=== PATIENT | female | born 1965 | race Caucasian/White ===

== ENCOUNTER 2017-01-17 19:51 | Observation (INO) | payer BC ==
[2017-01-17] MEDS ORDERED: ASPIRIN 81 MG TABLET, CHEWABLE PO ONE (20:25)
--- NOTE | 2017-01-17 20:27 | ER Document Report ---
ED Medical Screen (RME) - General Chief Complaint: Chest Pain Stated Complaint: CHEST PAIN Time Seen by Provider: 01/17/17 20:25 Notes: Patient says that she was watching Judge May on TV when she began experiencing chest pains across the front of the chest and between her shoulder blades and the back. She felt "tightness" in her jaw. She has a history of 2 prior heart attacks with similar symptoms. She had nitroglycerin and took 3 of them but did not get any relief, although the chest pain is beginning to ease off some now. Some mild shortness of breath. No recent illness. PMH: Heart attack 2. Hypertension. Patient of Dr. Nelson. TRAVEL OUTSIDE OF THE [place] IN LAST 30 DAYS: No - Related Data Allergies/Adverse Reactions: No Known Allergies Allergy (Verified 01/10/12 03:19) Past Medical History - Social History Frequency of alcohol use: None Drug Abuse: None - Past Medical History Cardiac Medical History: Reports: Hx Heart Attack - x2, last in january, Hx Hypercholesterolemia, Hx Hypertension Pulmonary Medical History: Reports: Hx Asthma, Hx COPD Renal/ Medical History: Denies: Hx Peritoneal Dialysis Psychiatric Medical History: Reports: Hx Depression Infectious Medical History: Denies: Hx MRSA Past Surgical History: Reports: Hx Hysterectomy - Immunizations Immunizations up to date: Yes Hx Diphtheria, Pertussis, Tetanus Vaccination: Yes Physical Exam - Vital signs Vitals: Temp Pulse Resp BP Pulse Ox 98.8 F 75 18 168/103 H 97 01/17/17 20:05 01/17/17 20:05 01/17/17 20:05 01/17/17 20:05 01/17/17 20:05 Course - Vital Signs Vital signs: Temp Pulse Resp BP Pulse Ox 98.8 F 75 18 168/103 H 97 01/17/17 20:05 01/17/17 20:05 01/17/17 20:05 01/17/17 20:05 01/17/17 20:05
[2017-01-17 20:53] LABS: ABSOLUTE BASOPHILS # (AUTO) 0.1 10^3/uL (0.0-0.2); ABSOLUTE EOSINOPHILS # (AUTO) 0.1 10^3/uL (0.0-0.6); ABSOLUTE LYMPHOCYTES (AUTO) 2.5 10^3/uL (0.5-4.7); ABSOLUTE MONOCYTES (AUTO) 0.5 10^3/uL (0.1-1.4); EOSINOPHILS % (AUTO) 1.3 % (0-6); HEMATOCRIT 41.2 % (36.0-47.0); HEMOGLOBIN 13.7 g/dL (12.0-15.5); HGB HCT DIFFERENCE -0.1; LYMPHOCYTES % (AUTO) 30.6 % (13-45); MEAN CORPUSCULAR HEMOGLOBIN 28.8 pg (27.0-33.4); MEAN CORPUSCULAR HGB CONC 33.3 g/dL (32.0-36.0); MEAN CORPUSCULAR VOLUME 87 fl (80-97); MONOCYTES % (AUTO) 5.9 % (3-13); RED BLOOD COUNT 4.76 10^6/uL (3.72-5.28); RED CELL DISTRIBUTION WIDTH 14.5 % (11.5-14.0); SEGMENTED NEUTROPHILS % (AUTO) 61.2 % (42-78); WHITE BLOOD COUNT 8.2 10^3/uL (4.0-10.5)
--- NOTE | 2017-01-17 21:01 | RADIOLOGY REPORT (SQ) ---
EXAM DESCRIPTION: CHEST SINGLE VIEW COMPLETED DATE/TIME: 01/17/2017 8:47 pm REASON FOR STUDY: Chest pain COMPARISON: June 2011 EXAM PARAMETERS: NUMBER OF VIEWS: One view. TECHNIQUE: Single frontal radiographic view of the chest acquired. RADIATION DOSE: NA LIMITATIONS: None. FINDINGS: LUNGS AND PLEURA: No opacities, masses or pneumothorax. No pleural effusion. Mild chronic appearing interstitial changes are identified. MEDIASTINUM AND HILAR STRUCTURES: No masses. Contour normal. HEART AND VASCULAR STRUCTURES: Heart normal in size. Normal vasculature. BONES: No acute findings. HARDWARE: None in the chest. OTHER: No other significant finding. IMPRESSION: NO ACUTE RADIOGRAPHIC FINDING IN THE CHEST. TECHNICAL DOCUMENTATION: JOB ID: [id number]
[2017-01-17] MEDS ORDERED: NITROGLYCERIN 2% OINTMENT 1 GM PACKET TP ONE (21:11)
[2017-01-17 21:12] LABS: ALANINE AMINOTRANSFERASE 24 U/L (9-52); ALKALINE PHOSPHATASE 99 U/L (38-126); ANION GAP 11 (5-19); ASPARTATE AMINO TRANSFERASE 18 U/L (14-36); BILIRUBIN,DIRECT 0.3 mg/dL (0.0-0.4); BILIRUBIN,TOTAL 0.5 mg/dL (0.2-1.3); BLOOD UREA NITROGEN 20 mg/dL (7-20); CALCIUM 9.3 mg/dL (8.4-10.2); CARBON DIOXIDE 25 mmol/L (22-30); CHLORIDE 104 mmol/L (98-107); CREATINE KINASE 83 U/L (30-135); CREATININE RESULT 0.99 mg/dL (0.52-1.25); GLUCOSE 111 mg/dL (75-110); POTASSIUM 4.2 mmol/L (3.6-5.0); TOTAL PROTEIN 6.8 g/dL (6.3-8.2)
--- NOTE | 2017-01-17 21:16 | ER Document Report ---
ED Cardiac - General Chief Complaint: Chest Pain Stated Complaint: CHEST PAIN Time Seen by Provider: 01/17/17 20:25 Mode of Arrival: Ambulatory Information source: Patient Notes: 52-year-old female with a history of coronary artery disease (ME 2, stents 2) who presents to the emergency room chest tightness radiating to the jaw and shoulder blades. The patient states she took 3 nitroglycerin. Patient states that the pain started at approximately 630 to 6:45 PM and lasted to approximately 8:15 PM. She states that the pain gradually resolved. Her blood pressure initially was noted to be elevated at 168/103 TRAVEL OUTSIDE OF THE [place] IN LAST 30 DAYS: No - HPI Patient complains to provider of: Chest tightness Use of: denies: Alcohol, Amphetamines, Bath salts, Caffeine, Cocaine, Decongestants, Other Was the onset of pain: Gradual Is the pain a: New problem Chest pain location: Substernal Quality of pain: Heaviness, Tightness. denies: Moderate, Sharp Chest pain radiation location: Left jaw, Right jaw Severity now: None Severity at worst: Moderate Pain level currently: Denies Chest pain precipitating factors: At Rest Cardiac risk factors: Hx ME Positive cardiac history: Yes Associated symptoms: denies: Abdominal pain, Shortness of breath Exacerbated by: Denies Relieved by: NTG Similar symptoms previously: Yes Recently seen / treated by doctor: No - Related Data Allergies/Adverse Reactions: No Known Allergies Allergy (Verified 01/10/12 03:19) Past Medical History - General Information source: Patient - Social History Smoking Status: Former Smoker Cigarette use (# per day): No - Quit 2 years ago Chew tobacco use (# tins/day): No Smoking Education Provided: No Frequency of alcohol use: None Drug Abuse: None Lives with: Family Family History: Reviewed & Not Pertinent Patient has suicidal ideation: No Patient has homicidal ideation: No - Past Medical History Cardiac Medical History: Reports: Hx Heart Attack - x2, last in january, Hx Hypercholesterolemia, Hx Hypertension Pulmonary Medical History: Reports: Hx Asthma, Hx COPD Renal/ Medical History: Denies: Hx Peritoneal Dialysis Psychiatric Medical History: Reports: Hx Depression Infectious Medical History: Denies: Hx MRSA Past Surgical History: Reports: Hx Hysterectomy - Immunizations Immunizations up to date: Yes Hx Diphtheria, Pertussis, Tetanus Vaccination: Yes Review of Systems - Review of Systems Constitutional: denies: Chills, Fever EENT: No symptoms reported Cardiovascular: See HPI Respiratory: No symptoms reported Gastrointestinal: No symptoms reported Genitourinary: No symptoms reported Female Genitourinary: No symptoms reported Musculoskeletal: No symptoms reported Skin: No symptoms reported Hematologic/Lymphatic: No symptoms reported Neurological/Psychological: No symptoms reported Physical Exam - Vital signs Vitals: Temp Pulse Resp BP Pulse Ox 98.8 F 75 18 168/103 H 97 01/17/17 20:05 01/17/17 20:05 01/17/17 20:05 01/17/17 20:05 01/17/17 20:05 Notes: Physical exam: GENERAL: A 2-year-old female, alert and oriented 3, no acute distress. Patient denies pain at this time. Currently, her blood pressure is 146/86 with a pulse of 62 her respiratory rate is 18 and her oxygen saturation is 96% on room air. HEAD: Atraumatic, normocephalic. EYES: Pupils equal round and reactive to light, extraocular movements intact, sclera anicteric, conjunctiva are normal. ENT: TMs normal, nares patent, oropharynx clear without exudates. Moist mucous membranes. NECK: Normal range of motion, supple without lymphadenopathy or JVD. LUNGS: Breath sounds clear to auscultation bilaterally and equal. No wheezes rales or rhonchi. HEART: Regular rate and rhythm without murmurs, rubs or gallops. ABDOMEN: Soft, normoactive bowel sounds. No tenderness to palpation. No guarding, no rebound. No masses appreciated. EXTREMITIES: Normal range of motion, no pitting or edema. No clubbing or cyanosis. NEUROLOGICAL: Cranial nerves II through XII grossly intact. Normal speech, normal gait. PSYCH: Normal mood, normal affect. SKIN: Warm, Dry, normal turgor, no rashes or lesions noted. Course - Vital Signs Vital signs: Temp Pulse Resp BP Pulse Ox 98.8 F 75 18 168/103 H 97 01/17/17 20:05 01/17/17 20:05 01/17/17 20:05 01/17/17 20:05 01/17/17 20:05 - Laboratory Result Diagrams: 01/17/17 20:35 01/17/17 20:35 Laboratory results interpreted by me: 01/17/17 01/17/17 20:35 20:35 RDW 14.5 H Est GFR (Non-Af Amer) 59 L Glucose 111 H - Diagnostic Test Radiology reviewed: Image reviewed, Reports reviewed - X-ray shows no obvious infiltrates - EKG Interpretation by Me Rate: Normal Rhythm: NSR - EKG shows normal sinus rhythm with a ventricular rate of 73, anterior septal Q's, no acute ST-T wave changes Discharge - Discharge Clinical Impression: Chest Pain Condition: Stable Disposition: ADMITTED OBSERVATION Admitting Provider: [facility] [place] [facility] Admitted: Telemetry
[2017-01-17 21:23] LABS: CREATINE KINASE MB 1.04 ng/mL (<4.55)
[2017-01-17 21:25] LABS: TROPONIN I < 0.012 ng/mL
[2017-01-17] MEDS ORDERED: NITROGLYCERIN 0.4 MG/TAB 25 TAB/BOTTLE SL PRN (23:36)
[2017-01-17] MEDS ORDERED: MORPHINE SULFATE 10 MG/ML INJ IV PRN (23:38)
[2017-01-17] MEDS ORDERED: ONDANSETRON HCL INJ/PF 4 MG/2 ML SDV IV PRN (23:49)
[2017-01-17] MEDS ORDERED: OXYCODONE-ACETAMINOPHEN 5-325 MG TABLET PO PRN (23:49)
[2017-01-17] MEDS ORDERED: LORAZEPAM 1 MG TABLET PO PRN (23:49)
[2017-01-17] MEDS ORDERED: DOCUSATE SODIUM 100 MG CAPSULE PO PRN (23:49)
[2017-01-17] MEDS ORDERED: PROMETHAZINE HCL 25 MG TABLET PO PRN (23:49)
[2017-01-18 01:00] LABS: CREATINE KINASE MB 2.05 ng/mL (<4.55)
[2017-01-18 01:09] LABS: TROPONIN I 0.301 ng/mL
--- NOTE | 2017-01-18 03:57 | EKG REPORT ---
SEVERITY:- ABNORMAL ECG - SINUS RHYTHM BORDERLINE LEFT AXIS DEVIATION ANTERIOR INFARCT, OLD : Confirmed by: Tiffanie Osorio MD 18-Jan-2017 03:56:11
--- NOTE | 2017-01-18 03:57 | EKG REPORT ---
SEVERITY:- BORDERLINE ECG - SINUS RHYTHM BORDERLINE LEFT AXIS DEVIATION CONSIDER ANTERIOR INFARCT : Confirmed by: Tiffanie Osorio MD 18-Jan-2017 03:56:06
[2017-01-18] MEDS ORDERED: LANSOPRAZOLE 30 MG TAB.RAP.DR PO SCH (06:00)
[2017-01-18 06:10] LABS: HEMATOCRIT 41.5 % (36.0-47.0); HEMOGLOBIN 13.7 g/dL (12.0-15.5); HGB HCT DIFFERENCE -0.4; MEAN CORPUSCULAR HEMOGLOBIN 28.9 pg (27.0-33.4); MEAN CORPUSCULAR HGB CONC 32.9 g/dL (32.0-36.0); MEAN CORPUSCULAR VOLUME 88 fl (80-97); RED BLOOD COUNT 4.73 10^6/uL (3.72-5.28); RED CELL DISTRIBUTION WIDTH 14.5 % (11.5-14.0); WHITE BLOOD COUNT 5.9 10^3/uL (4.0-10.5)
[2017-01-18 06:40] LABS: CREATINE KINASE MB 3.82 ng/mL (<4.55)
[2017-01-18 06:53] LABS: TROPONIN I 0.716 ng/mL
[2017-01-18] MEDS: ALBUTEROL SULFATE HFA (90 MCG/PUFF) 8 GM MDI (1 MDI/ER DISP) IH SCH ×2 (08:34→09:57)
[2017-01-18] MEDS: ACETAMINOPHEN 325 MG TABLET PO PRN ×2 (08:34→11:36)
--- NOTE | 2017-01-18 09:15 | PDOC H&P ---
History of Present Illness Admission Date/PCP: 01/18/17 00:28 YSABEL CHRISSYRILEY Patient complains of: Chest pain/tightness radiating to shoulders and jaw, lasted for about 2 hours. History of Present Illness: FARIDA CHACKO is a 52 year old female with hx of HTN/Hyperlipidemia/CAD s.p [place]/ stentsx2/Asthma/Migraine headache/Back pain/osteoarthritis/Anxiety disorder, who started having chest pain- more of tightness while watching a program on TV ; the pain radiates to shoulders and jaw assoc. with dyspnea. She took 3 NTG with some relief, but the pain persisted, hence she came to ER for evaluation and mgt. Past Medical History Cardiac Medical History: Reports: Myocardial Infarction - x2, last in january, Hyperlipidema, Hypertension Pulmonary Medical History: Reports: Asthma, Chronic Obstructive Pulmonary Disease (COPD) Psychiatric Medical History: Reports: Depression Infectious Medical History: Denies: Methicillin-Resistant Staph Aureus Past Surgical History Past Surgical History: Reports: Hysterectomy Social History Lives with: Family Smoking Status: Former Smoker Drugs: None Family History Family History: Reviewed & Not Pertinent Parental Family History Reviewed: Yes Children Family History Reviewed: Yes Sibling(s) Family History Reviewed.: Yes Medication/Allergy Allergies/Adverse Reactions: No Known Allergies Allergy (Verified 01/10/12 03:19) Review of Systems Constitutional: PRESENT: as per HPI Eyes: PRESENT: as per HPI Ears: PRESENT: as per HPI Nose, Mouth, and Throat: PRESENT: as per HPI Cardiovascular: PRESENT: chest pain, dyspnea on exertion Respiratory: PRESENT: dyspnea Gastrointestinal: PRESENT: as per HPI Genitourinary: PRESENT: as per HPI Musculoskeletal: PRESENT: as per HPI Integumentary: PRESENT: as per HPI Neurological: PRESENT: as per HPI Psychiatric: PRESENT: as per HPI Physical Exam Vital Signs: Temp Pulse Resp BP Pulse Ox 97.7 F 61 18 132/84 H 96 01/18/17 07:13 01/18/17 07:13 01/18/17 07:13 01/18/17 07:13 01/18/17 07:13 General appearance: PRESENT: no acute distress, cooperative, well-developed, well-nourished Head exam: PRESENT: atraumatic, normocephalic Eye exam: PRESENT: EOMI, PERRLA Ear exam: PRESENT: normal external ear exam Mouth exam: PRESENT: neck supple, tongue midline Neck exam: PRESENT: full ROM Respiratory exam: PRESENT: clear to auscultation kamari, symmetrical Cardiovascular exam: PRESENT: +S1, +S2 Pulses: PRESENT: +2 pedal pulses bilateral GI/Abdominal exam: PRESENT: normal bowel sounds, soft Rectal exam: PRESENT: deferred Neurological exam: PRESENT: alert, awake, oriented to person, oriented to place , oriented to time, CN II-XII grossly intact Psychiatric exam: PRESENT: normal mood Results Laboratory Results: 01/18/17 05:55 01/18/17 05:55 WBC 5.9 RBC 4.73 Hgb 13.7 Hct 41.5 MCV 88 MCH 28.9 MCHC 32.9 RDW 14.5 H Plt Count 198 01/18/17 01/18/17 05:55 05:55 Creatine Kinase 89 CK-MB (CK-2) 3.82 Troponin I 0.716 Impressions: Chest X-Ray 01/17/17 20:25 IMPRESSION: NO ACUTE RADIOGRAPHIC FINDING IN THE CHEST. Assessment & Plan - Diagnosis (1) Chest pain at rest Is this a current diagnosis for this admission?: YesPlan: Ct with NTG 0.4mg S/L q5 min prn x3; Morphine 2 mg q4h IV prn; Zofran 4mg q6h prn IV; Aspirin 81 mg qd po; 2 g diet, low cholesterol diet; serial EKG and cardiac enzymes. F/u cardiology consult. (2) Hypertension Qualifiers: Hypertension type: essential hypertension Qualified Code(s): I10 - Essential (primary) hypertension Is this a current diagnosis for this admission?: YesPlan: Ct with Lisinopril 20 mg qd po; Metoprolol tartrate 25 mg BID po; 2 g sodium diet. (3) Hyperlipidemia Is this a current diagnosis for this admission?: YesPlan: Ct with Atorvastatin 40 mg qhs po; 200 mg cholesterol diet. (4) Asthma Is this a current diagnosis for this admission?: YesPlan: Ct with Symbicort 160/4.5 2 puffs BID; Albuterol HFA 2 puffs q6h prn, oxygen by N/C 2 l/min prn. (5) Lumbago Is this a current diagnosis for this admission?: YesPlan: Ct with [place] 5/325 1 BID prn po; Flexeril 10 mg BID prn po. (6) Anxiety disorder Qualifiers: Anxiety disorder type: generalized anxiety disorder Qualified Code(s ): F41.1 - Generalized anxiety disorder Is this a current diagnosis for this admission?: YesPlan: Ct with Ativan 1 mg TID prn po; Effexor 75 mg qd po. (7) Vitamin D deficiency Is this a current diagnosis for this admission?: YesPlan: Ct with Vitamin D [id number] q weekly po. (8) DVT prophylaxis Is this a current diagnosis for this admission?: YesPlan: Ct with Lovenox 40 mg qd subcut; SCD. - Time Time Spent: 30 to 50 Minutes Medications reviewed and adjusted accordingly: Yes Anticipated discharge: Home Within: within 36 hours - Inpatient Certification Medical Necessity: Failure to Improve With Outpatient Therapy, Need For Continuous Telemetry Monitoring, Need for Pain Control
[2017-01-18] MEDS ORDERED: LISINOPRIL 10 MG TABLET PO SCH (10:00)
[2017-01-18] MEDS ORDERED: ENOXAPARIN SODIUM INJ 40 MG/0.4 ML DISP.SYRIN SUBCUT SCH (10:00)
[2017-01-18] MEDS ORDERED: METOPROLOL TARTRATE 25 MG TABLET PO SCH (10:00)
[2017-01-18] MEDS ORDERED: ASPIRIN 81 MG TABLET, CHEWABLE PO SCH (10:00)
[2017-01-18] MEDS ORDERED: CITALOPRAM HYDROBROMIDE 20 MG TABLET PO SCH (10:00)
[2017-01-18] MEDS ORDERED: FLUTICASONE/SALMETEROL DISKUS 250-50 MCG/DOSE IH SCH (10:00)
--- NOTE | 2017-01-18 10:30 | PDOC TRANSFER SUMMARY ---
General Admission Date/PCP: 01/18/17 00:28 YSABEL MILLER - Transfer Diagnosis (1) Non-ST elevated myocardial infarction Is this a current diagnosis for this admission?: YesDiagnosis Summary: 52 yr old woman with hx of HTN/hyperlipidemia/CAD s.p mI/stentsx2, who presented to ED for chest pain and her troponin was initially normal, but gradually increased to 0.7. She was seen in consult by career advisor, Dr Magana who discussed the case with career advisor, Dr Donovan Infante with [facility] and pt has been accepted in transfer for mgt. (2) Chest pain at rest Is this a current diagnosis for this admission?: Yes (3) Hypertension Is this a current diagnosis for this admission?: Yes (4) Hyperlipidemia Is this a current diagnosis for this admission?: Yes (5) Asthma Is this a current diagnosis for this admission?: Yes (6) Lumbago Is this a current diagnosis for this admission?: Yes (7) Anxiety disorder Is this a current diagnosis for this admission?: Yes (8) Vitamin D deficiency Is this a current diagnosis for this admission?: Yes (9) DVT prophylaxis Is this a current diagnosis for this admission?: Yes - Transfer Medications Home Medications: Budesonide/Formoterol Fumarate [Symbicort HFA 160-4.5 mcg Inhaler 6 gm] 2 puff IH BID 01/18/17 Butalb/Acetaminophen/Caffeine [Fioricet (50-325-40 mg) Tablet] 1 tab PO BIDP PRN 01/18/17 Clobetasol Propionate/Emoll [Clobetasol Emollient 0.05% Crm] 1 applic TOP BID Cyclobenzaprine HCl [Flexeril 10 mg Tablet] 10 mg PO BID 01/18/17 Ergocalciferol (Vitamin D2) [Drisdol 50,000 unit (1.25MG) Capsule] 50,000 units PO MORE@1000 01/18/17 Estradiol [Estrace] 1 mg PO DAILY 01/18/17 Hydrocodone/Acetaminophen [[place] 5-325 mg Tablet] 1 tab PO BIDP PRN 01/18/17 Ibuprofen [Motrin 800 mg Tablet] 800 mg PO TIDP PRN 01/18/17 Lisinopril [Zestril] 20 mg PO DAILY 01/18/17 Lorazepam [Ativan 1 mg Tablet] 1 mg PO TIDP PRN 01/18/17 Nitroglycerin [Nitrostat] 1 tab PO Q5MP PRN 01/18/17 Venlafaxine HCl ER [Effexor Xr 75 mg Cap.sr] 75 mg PO DAILY 01/18/17 Zolpidem Tartrate [Ambien] 10 mg PO QHS 01/18/17 Transfer Medications: Current Medications Acetaminophen (Tylenol 325 Mg Tablet) 650 mg PO Q6 PRN Stop: 02/17/17 00:00 Last Admin: 01/18/17 08:34 Dose: Not Given Albuterol (Ventolin Hfa 8 Gm Mdi (1 Mdi/Er Disp)) 2 puff IH Q4 NERIS Stop: 02/17/17 01:59 Last Admin: 01/18/17 09:57 Dose: Not Given Aspirin (Aspirin 81 Mg Chewable Tablet) 81 mg PO DAILY NERIS Stop: 02/17/17 09:59 Last Admin: 01/18/17 10:06 Dose: 81 mg Atorvastatin Calcium (Lipitor 10 Mg Tablet) 10 mg PO QHS NERIS Stop: 02/17/17 21:59 Citalopram Hydrobromide (Celexa 20 Mg Tablet) 20 mg PO DAILY NERIS Stop: 02/17/17 09:59 Last Admin: 01/18/17 10:07 Dose: 20 mg Docusate Sodium (Colace 100 Mg Capsule) 100 mg PO DAILYP PRN Stop: 02/16/17 23:48 Enoxaparin Sodium (Lovenox Inj 40 Mg/0.4 Ml Disp.Syrin) 40 mg SUBCUT DAILY NERIS Stop: 02/17/17 09:59 Last Admin: 01/18/17 10:05 Dose: 40 mg Lansoprazole (Prevacid 30 Mg Odt Tablet) 30 mg PO Q6AM NERIS Stop: 02/17/17 05:59 Last Admin: 01/18/17 08:34 Dose: Not Given Lisinopril (Prinivil 10 Mg Tablet) 10 mg PO DAILY NERIS Stop: 02/17/17 09:59 Last Admin: 01/18/17 10:07 Dose: 10 mg Lorazepam (Ativan 1 Mg Tablet) 1 mg PO BIDP PRN Stop: 01/24/17 23:48 Metoprolol Tartrate (Lopressor 25 Mg Tablet) 25 mg PO Q12 NERIS Stop: 02/17/17 09:59 Last Admin: 01/18/17 10:06 Dose: 25 mg Morphine Sulfate (Morphine 10 Mg/Ml Inj) 2 mg IV Q4HP PRN Stop: 01/24/17 23:37 Nitroglycerin (Nitrostat 0.4 Mg (1/150 Gr) Tabs 25/Bottle) 1 tab SL Q5MP PRN Stop: 02/16/17 23:35 Ondansetron HCl (Zofran Inj/Pf 4 Mg/2 Ml Sdv) 4 mg IV Q6HP PRN Stop: 02/16/17 23:48 Oxycodone/Acetaminophen (Percocet 5-325 Mg Tablet) 2 tab PO Q6HP PRN Stop: 01/24/17 23:48 Promethazine HCl (Phenergan 25 Mg Tablet) 25 mg PO Q6HP PRN Stop: 02/16/17 23:48 Fluticasone/Salmeterol (Advair 250-50 Diskus 14 Dose/Diskus) 1 inh IH Q12 NERIS Stop: 02/17/17 09:59 Last Admin: 01/18/17 10:07 Dose: 1 inh Zolpidem Tartrate (Ambien 5 Mg Tablet) 10 mg PO QHS NERIS Stop: 02/17/17 21:59 - Allergies Allergies/Adverse Reactions: No Known Allergies Allergy (Verified 01/10/12 03:19) Hospital Course Hospital Course: 52 yr old woman with hx of HTN/Hyperlipidmeia/CAD s.p [place]/stensx2/Anxiety disorder/Asthma, who presented to Ed for chest pain. She was admitted for 23 hour observation.Her troponin was initially normal, but gradually increased to 0.7 and EKG did not show change from her baseline. She was seen in consult by our career advisor, Dr Magana who discussed the case with career advisor, Dr Donovan Infante with [facility] and she was accepted in transfer for further evaluation and mgt. Physical Exam Vital Signs: Temp Pulse Resp BP Pulse Ox 97.7 F 61 18 132/84 H 96 01/18/17 07:13 01/18/17 07:13 01/18/17 07:13 01/18/17 07:13 01/18/17 07:13 General appearance: PRESENT: no acute distress, cooperative, well-developed, well-nourished Head exam: PRESENT: atraumatic, normocephalic Eye exam: PRESENT: EOMI, PERRLA Mouth exam: PRESENT: moist, neck supple, tongue midline Neck exam: PRESENT: full ROM Respiratory exam: PRESENT: clear to auscultation kamari, symmetrical Cardiovascular exam: PRESENT: +S1, +S2 Pulses: PRESENT: +2 pedal pulses bilateral GI/Abdominal exam: PRESENT: normal bowel sounds, soft Rectal exam: PRESENT: deferred Musculoskeletal exam: PRESENT: full ROM Neurological exam: PRESENT: alert, awake, oriented to person, oriented to place , oriented to time, CN II-XII grossly intact Psychiatric exam: PRESENT: normal mood Results Laboratory Results: 01/18/17 05:55 01/18/17 05:55 WBC 5.9 RBC 4.73 Hgb 13.7 Hct 41.5 MCV 88 MCH 28.9 MCHC 32.9 RDW 14.5 H Plt Count 198 01/18/17 01/18/17 05:55 05:55 Creatine Kinase 89 CK-MB (CK-2) 3.82 Troponin I 0.716 Impressions: Chest X-Ray 01/17/17 20:25 IMPRESSION: NO ACUTE RADIOGRAPHIC FINDING IN THE CHEST.
[2017-01-18] MEDS ORDERED: NORMAL SALINE 1000 ML 1,000 ML IV PRN (11:14)
[2017-01-18 12:43] VITALS: BP 140/89
[2017-01-18 13:14] LABS: CREATINE KINASE MB 3.41 ng/mL (<4.55); TROPONIN I 0.594 ng/mL
[2017-01-18] MEDS ORDERED: ATORVASTATIN CALCIUM 10 MG TABLET PO SCH (22:00)
[2017-01-18] MEDS ORDERED: ZOLPIDEM TARTRATE 5 MG TABLET PO SCH (22:00)
--- NOTE | 2017-01-19 17:36 | EKG REPORT ---
SEVERITY:- NORMAL ECG - SINUS RHYTHM : Confirmed by: Jim Tran 19-Jan-2017 17:35:51
--- NOTE | 2017-01-20 16:17 | TRANSFER SUMMARY E ---
Transfer Summary NAME: FARIDA CHACKO : 1965 AGE: 52Y ADMITTED: 01/18/2017 TRANSFERRED: 01/18/2017 REASON FOR CONSULTATION: Patient with classical arrest, angina with evidence of non-ST elevation NJ by cardiac enzymes. NOTE: I saw the patient from 0830 hours and 40 minutes were spent on the patient, taking history, examining the patient and more than 50% of the time was spent on direct patient care. Also, subsequently I spent another 10 minutes later on in the day contacting Dr. Donovan Infante, the accepting physician for the patient in [facility] where the patient wanted to be transferred. I discussed the case with him in detail and prior to that, I spoke to the transfer center and discussed with the transfer center personnel about the patient's demographics and the patient's diagnosis. HISTORY: The patient is a 52-year-old female with known history of coronary artery disease, history of hypertension, history of hyperlipidemia who in 2008 had a non-ST elevation NJ and had a stent placement circumflex at the obtuse marginal 1 and PTCA of the ostial AV groove circumflex branch who later again developed another non-ST elevation NJ in and at that time, the circumflex stent was patent as also the AV groove circumflex was patent. The patient had a mid-LAD lesion which was stented with a Promus stent. The patient states that yesterday, she was watching a TV show when she had sudden onset of chest tightness which was severe with also radiation to the jaw with jaw tightness and also tightness in the upper back. This lasted for about 1-1/2 hours. The patient had no palpitations, no diaphoresis, no shortness of breath, no PND or orthopnea. Her initial EKG showed possible old anterior NJ versus lead placement. There were no acute changes. The patient's initial troponin-I which was less than 0.12, subsequently lalit up to 0.301 and subsequently 0.716. The patient since admission has been pain free. PAST MEDICAL HISTORY: As mentioned earlier: 1. History of coronary artery disease. 2. History of non-ST elevation NJ in 2008 resulting in a stent in the circumflex at the OM 1 branch and also PTCA to ostial AV groove circumflex. 3. Also, non-ST elevation NJ in 2017. At this time, she had a stent in the mid-LAD. 4. Note, at the time of cath, the left anterior descending artery was 100% in its mid-segment which was opened and a Promus stent was placed. Since then, this is the first time that the patient has been having anginal symptoms. 5. There is no history of congestive heart failure. There is no history of palpitations or syncope. There is no PND or orthopnea. There is no dyspnea on exertion. 6. She has a history of hypertension. 7. Hyperlipidemia. 8. There is no history of diabetes mellitus or thyroid disease. 9. No history of TIA or CVA. No history of seizures, headaches or migraines. 10. Although the patient has no history of chronic kidney disease, the patient's GFR which was normal in the past, her GFR was noted to be 59 mL/h on 01/17/2017. 11. She has no history of anxiety or depression. 12. She has a history of asthma and COPD. She quit smoking many years ago. FAMILY HISTORY: Positive for coronary artery disease in a sister and her mother. PAST SURGICAL HISTORY: 1. Hysterectomy. 2. Cardiac catheterization and stent placements. ALLERGIES: She has no known allergies. SOCIAL HISTORY: The patient quit smoking many years ago. There is no history of EtOH abuse. DISPOSITION: The patient is a FULL CODE. Her sister is her surrogate healthcare decision maker. MEDICATIONS: 1. Tylenol 650 mg p.o. every 6 hours p.r.n. 2. Albuterol 2 puffs inhalation every 4 hours p.r.n. 3. Aspirin 324 mg p.o. x1 given on yesterday and 81 mg p.o. daily. 4. Atorvastatin 10 mg p.o. nightly. 5. Citalopram 20 mg p.o. daily (note although the patient initially denied any history of depression, she does have a history of depression). 6. Colace 100 mg p.o. daily. 7. Lovenox 40 mg subcutaneously daily. 8. Advair Diskus 250/50 one inhalation twice a day. 9. Lansoprazole 30 mg p.o. at 0600 hours. 10. Lisinopril 10 mg p.o. daily. 11. Lorazepam 1 mg p.o. b.i.d. p.r.n. 12. Metoprolol 25 mg p.o. every 12 hours. 13. Morphine sulfate 2 mg IV every 4 hours p.r.n. 14. She did get nitroglycerin paste 1 g topically x1 yesterday. She is off of it now. She is on nitroglycerin 1 tablet sublingual every 5 minutes p.r.n. 15. Normal saline. 16. Zofran 4 mg IV every 6 hours p.r.n. 17. Oxycodone 2 tablets p.o. every 6 hours p.r.n. 18. Phenergan 25 mg p.o. every 6 hours p.r.n. 19. Zolpidem tartrate, Ambien 10 mg p.o. nightly. REVIEW OF SYMPTOMS: CONSTITUTIONAL: Denies any fever, chills, or rigors. There is no generalized fatigue or weakness. HEAD: No history of headaches or head injury. EYES: No history of amblyopia or diplopia. No history of amaurosis fugax. EARS: No history of hearing loss. No history of tinnitus. No history of vertigo. No history of recurrent ear infections. NOSE: No history of nosebleeds. No history of nasal polyps. There is no history of hay fever. MOUTH: No altered taste sensation. No history of bleeding from the gums. No history of ulcers in the mouth. THROAT: No history of odynophagia or dysphagia. No history of recurrent sore throats. SKIN: No history of psoriasis. No history of skin cancer. No history of pruritus. No history of yellowish discoloration of the skin. NECK: Denies any symptoms suggestive of C-spine arthritis. No goiter. LUNGS: History of asthma, COPD. No recent cough or wheezing. No hemoptysis. No history of pulmonary embolism. No history of pleuritic chest pain. No history of sleep apnea. No history of recent symptoms of upper respiratory tract infection or lower respiratory tract infection. CARDIAC: History of hypertension present. History of CAD as mentioned earlier. History of stents as mentioned early in 2008 and 2016. Note that the patient yesterday had chest tightness with also radiation to the jaw and both sides of the jaw were tight and she also had tightness in the upper back in spite of her taking 3 sublingual nitroglycerin which gave some relief. The pain lasted for about an hour. Subsequently, she has ruled in for a non-ST elevation NJ. There is no history of PND or orthopnea. There are no palpitations or syncope. No history of congestive heart failure. No history of rheumatic fever. No history of heart disease. No history of pedal edema. Denies any dyspnea on exertion, mild to moderate but with severe exertion due to her asthma and COPD she has shortness of breath. GASTROINTESTINAL: No history of fatty food intolerance. No history of cirrhosis. No history of GI bleed. No history of altered bowel movements. No history of abdominal pain. No history of GERD or peptic ulcer disease. MUSCULOSKELETAL: Denies any osteoarthritis or collagen vascular disease. ENDOCRINE: No history of diabetes mellitus. No history of thyroid disease. No history of polydipsia or polyuria. No history of heat or cold intolerance. METABOLIC: No history of gout. History of mild to moderate obesity present. History of hyperlipidemia present. RENAL: No past history of chronic kidney disease, but the patient's GFR is slightly reduced at 59, could be due to the patient not having taken enough fluids so this may be a prerenal state causing mild renal insufficiency. There are no symptoms of UTI. No history of hematuria, pyuria or dysuria. CENTRAL NERVOUS SYSTEM: No history of TIA or CVA. No history of sleep apnea. No history of seizures, headaches or migraines. No history of gait imbalance. PSYCHIATRIC: History of depression. History of anxiety controlled with medication. No history of suicidal ideation. No history of homicidal ideation. VASCULAR: No history of calf or buttock claudication. No history of DVT. HEMATOLOGIC: No history of bleeding diathesis. No history of clotting disorders. PHYSICAL EXAMINATION: GENERAL: On examination earlier this morning, the patient was mildly to moderately obese, well groomed in no acute distress. She has no chest pain at present. VITAL SIGNS: She is afebrile with a temperature of 97.7 degrees Fahrenheit. Pulse is 61 beats per minute. Blood pressure 132/84. Respirations are 18 per minute. O2 saturation 96% on room air. HEENT: Head is atraumatic and normocephalic. Eyes; pupils are equal, round, regular, reactive to light and accommodation. Extraocular movements are normal. There is no conjunctival pallor. There is no scleral icterus. Ears; tympanic membranes are intact. External auditory canals are clear. Nose; there is no deviated nasal septum. There is no inflammation of the nasal mucous membranes. Mucous membranes of the mouth and tongue are slightly dry. Throat; there is no redness of the oropharynx. There are no exudates in the throat. SKIN: There is no petechia or ecchymosis. There are no skin lesions or skin rashes. NECK: Supple. There is no JVD. Carotids are equal. There is no bruit. Trachea is central. There is no goiter. LUNGS: Show diminished air entry, prolonged expiration, otherwise clear without any rales, rhonchi or wheezing. On percussion, there is hyperresonance. There is no chest wall tenderness on palpation. HEART: S1 and S2 are heard. There is no S3 gallop. There is no S4 gallop. There is a systolic murmur at the left sternal border at the apex. There is no rub. ABDOMEN: Soft, slightly obese, nontender. There is no hepatosplenomegaly. Bowel sounds are well heard. There are no tender areas or masses. EXTREMITIES: Femorals are slightly diminished. There are no femoral bruits. Leg pulses are well felt. There is no pedal edema. There is no DVT or cellulitis. There is no calf tenderness. CENTRAL NERVOUS SYSTEM: The patient is conscious, awake, alert, oriented x3 with no focal deficits. PSYCHIATRIC: The patient's judgment and insight are intact. Her affect is normal. ELECTROCARDIOGRAM: EKG done on 01/17/2017 shows sinus rhythm, old anterior NJ. Borderline left axis deviation, sinus rhythm, no acute changes. The patient's EKG done today shows sinus rhythm, R waves are better in the precordial leads and in fact, the EKG appears to be normal. Hence, the prior old anterior NJ possibly the Q waves are due to lead placement. IMAGING: Chest x-ray shows no acute changes. LABORATORY: Sodium 140, potassium 4.2, chloride 104, CO2 of 25, BUN 20, creatinine 0.99, GFR 59 mL which is mild renal insufficiency, glucose 111, calcium 9.3. Liver function tests are normal. Total protein 6.8, albumin 4.0. CPK and CPK-MB were negative. 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 White count 5900, hemoglobin 13.7, hematocrit 41.5, platelet count 198,000. IMPRESSION: 1. Non-ST elevation NJ. 2. Coronary artery disease with prolonged rest angina resulting in a non-ST elevation NJ. 3. History of percutaneous intervention of coronary artery disease with a circumflex stent at the OM 1 and PTCA of the AV groove circumflex in 2008 and also after non-ST elevation in January, she had a stent placed in the mid-LAD. The mid-LAD seemed to be occluded to its midportion which was reopened and revascularized with a stent. Note, the patient in 2008 also had a non-ST elevation NJ. 4. Hypertension. 5. Hyperlipidemia. 6. Asthma. 7. COPD. 8. History of anxiety. 9. Depression. RECOMMENDATIONS: 1. At present, the patient appears to be stable, but the patient will definitely require repeat cardiac catheterization and stent placement if a lesion is found. The risks and benefits of cardiac catheterization have been discussed in detail with the patient. The risks of transfer have also been discussed with the patient in detail. 2. We will continue the patient on aspirin and metoprolol and nitroglycerin sublingual p.r.n. 3. Will continue the patient on low-dose Lovenox since the patient may have a cardiac catheterization. 4. Will start the patient on IV fluids normal saline at 60 mL/h to hydrate the patient and also will keep the patient n.p.o. in anticipation of cardiac catheterization. 5. As mentioned earlier, the transfer center personnel were contacted at [facility] and the patient's demographics and the diagnosis given. 6. Also, subsequently as mentioned earlier, I spoke to Dr. Donovan Infante about the patient, including the clinical details in total and he accepts the patient for cardiac catheterization. We will keep the patient n.p.o. NOTE: This is a highly complex medical decision making case since the patient has a non-ST elevation NJ with the patient with known coronary artery disease and history of multiple stents and need for cardiac catheterization. Discussed with Dr. Nelson on the case. DICTATING PHYSICIAN: KALE BELTRAN M.D. [id number] PHY#: [id number] ID: [id number] JOB#: [id number] ACCT: [id number] cc:KALE BELTRAN M.D. >
== END 2017-01-18 13:45 | disposition short-term general hospital (02) ==
LOC: ER 19:51 → UNDOADMOB 22:34 → EH 22:34 → 4N 01-18 00:28 → EH 01-18 01:43
PROVIDERS: ADMIT Internal Medicine; ATTEND Internal Medicine
DX: I21.4 Non-ST elevation (NSTEMI) myocardial infarction (principal); I25.118 Atherosclerotic heart disease of native coronary artery with other forms of angina pectoris; I10 Essential (primary) hypertension; J44.9 Chronic obstructive pulmonary disease, unspecified; Z95.5 Presence of coronary angioplasty implant and graft; E66.9 Obesity, unspecified; E78.5 Hyperlipidemia, unspecified; F32.9 Major depressive disorder, single episode, unspecified; F41.1 Generalized anxiety disorder; N28.9 Disorder of kidney and ureter, unspecified; M54.5 Low back pain; E55.9 Vitamin D deficiency, unspecified; M19.90 Unspecified osteoarthritis, unspecified site; I25.2 Old myocardial infarction; Z87.891 Personal history of nicotine dependence; Z82.49 Family history of ischemic heart disease and other diseases of the circulatory system; Z79.899 Other long term (current) drug therapy; Z79.82 Long term (current) use of aspirin; Z79.51 Long term (current) use of inhaled steroids; Z68.36 Body mass index [BMI] 36.0-36.9, adult
CPT/HCPCS: 93005 ×2; 36415 ×2; 82553 ×2; 82550 ×2; 85025; 85027; 80053; 84484 ×2; 71010; 93010 ×2; J1650; J7030; J3490; 99285; G0378

== ENCOUNTER → 2018-02-26 | Outpatient (CLI) | payer BC ==
--- NOTE | 2018-02-26 12:07 | WOMENS IMAGING REPORT ---
EXAM DESCRIPTION: BILAT SCREENING MAMMO W/CAD COMPLETED DATE/TIME: 02/26/2018 8:07 am REASON FOR STUDY: ROUTINE BILATERAL SCREENING;Z12.31 Z12.31 ENCNTR SCREEN MAMMOGRAM FOR MALIGNANT N EOPLASM OF ULISSES COMPARISON: 08/30/2015 and 11/28/2010 TECHNIQUE: Standard craniocaudal and mediolateral oblique views of each breast recorded using digita l acquisition. LIMITATIONS: None. FINDINGS: Findings present which are benign by mammographic criteria. No suspicious masses, calcifi cations or architectural distortion. Read with the assistance of CAD. .[facility] - R2 Cenova Version 1.3 .[facility] Imaging - R2 Cenova Version 1.[address] .[facility] Imaging - R2 Cenova Version 2.4 .[facility] [place] - R2 Cenova Version 2.4 .[facility] - R2 [employer] Ring [employer]er Version 9.2 Benign mammographic findings may include one or more of the following: Smooth masses, popcorn/rim/co arse calcifications, asymmetries, post-procedure changes, and lesions with long-standing stability. IMPRESSION: BENIGN MAMMOGRAPHIC FINDINGS. BIRADS 2 BREAST DENSITY: a. The breasts are almost entirely fatty. BIRAD: 2 BENIGN FINDING(S) RECOMMENDATION: ROUTINE SCREENING COMMENT: The patient has been notified of the results by letter per SA requirements. Additional no tification policies are in place for contacting patient with suspicious or incomplete findings. Quality ID #[id number]: The [employer] recommends an annual screening mammogram for women aged 40 years or over. This facility utilizes a reminder system to ensure that all patients receive reminder letters, and/or direct phone calls for appointments. This includes reminders for routine scr eening mammograms, diagnostic mammograms, or other Breast Imaging Interventions when appropriate. Th is patient will be placed in the appropriate reminder system. The [employer] (A[employer]) has developed recommendations for screening MRI of the breast s in certain patient populations, to be used in conjunction with mammography. Breast MRI surveillanc e may be appropriate for women with more than 20% lifetime risk of developing breast cancer as deter mined by genetic testing, significant family history of the disease, or history of mantle radiation f or Hodgkins Disease. ACR Practice Guidelines 2008. TECHNICAL DOCUMENTATION: FINDING NUMBER: (1) ASSESSMENT: (1) JOB ID: [id number] [employer]- All Rights Reserved Reading location - IP/workstation name: [email or web address]
== END ==
LOC: WI 07:15
PROVIDERS: ATTEND Internal Medicine
DX: Z12.31 Encounter for screening mammogram for malignant neoplasm of breast (principal)
CPT/HCPCS: 77067